=== PATIENT | female | born 1985 | race Caucasian/White ===

== ENCOUNTER 2019-03-11 10:47 | Outpatient (REF) | payer MEDICAID, SELFPAY ==
[2019-03-11 13:42] LABS: HCT 41.4 % (36.0-46.0); HGB 14.4 g/dL (12.0-15.5); Mean Corp. HGB Concentration 34.8 g/dL (32.0-36.0); Mean Corpuscular Hemoglobin 29.9 pg (27.0-33.0); Mean Corpuscular Volume 86.1 fL (80-95); Mean Platelet Volume 11.7 fL (8.0-11.0); Platelet Count 227 x1000/uL (130-400); RBC 4.81 m/cumm (4.00-5.20); RBC Distribution Width 12.1 % (11.7-14.6); White Blood Cell Count 4.14 k/cumm (4.4-10.8)
[2019-03-11 14:44] LABS: Ferritin 40 ng/mL (8-252)
== END 2019-03-11 11:07 ==
LOC: NCHCN 10:47
PROVIDERS: PCP Family Medicine; Visit Provider Family Medicine
DX: R53.83 Other fatigue (principal); G25.81 Restless legs syndrome
CPT/HCPCS: 85027; 82728

== ENCOUNTER 2019-07-16 09:12 | Outpatient (CLI) | payer MEDICAID, SELFPAY ==
[2019-07-19 03:36] LABS: SARS-CoV-2 RNA Undetected (Undetected); SARS-CoV-2 Specimen Source Nasopharynx
== END 2019-07-16 09:32 ==
PROVIDERS: PCP Family Medicine; Visit Provider Family Medicine
DX: Z20.828 Contact with and (suspected) exposure to other viral communicable diseases (principal); R06.02 Shortness of breath; R05 Cough
CPT/HCPCS: U0003

== ENCOUNTER 2019-10-07 18:10 | Outpatient (REF) | payer MEDICAID, SELFPAY ==
[2019-10-07 20:17] LABS: Mono Screening Negative (Negative)
[2019-10-11 04:54] LABS: SARS-CoV-2 RNA Undetected (Undetected); SARS-CoV-2 Specimen Source Nasopharynx
== END 2019-10-07 18:30 ==
LOC: NCHCN 18:10
PROVIDERS: PCP Nurse Practitioner Family; Visit Provider Nurse Practitioner Family
DX: J02.9 Acute pharyngitis, unspecified (principal); Z20.828 Contact with and (suspected) exposure to other viral communicable diseases
CPT/HCPCS: U0003; 86308

== ENCOUNTER 2019-11-16 07:37 | Outpatient (CLI) | payer MEDICAID, SELFPAY ==
[2019-11-17 17:26] LABS: COVID-19 RT-PCR Result NEGATIVE (Negative)
== END 2019-11-16 07:57 ==
PROVIDERS: PCP Nurse Practitioner Family; Visit Provider Family Medicine
DX: R06.02 Shortness of breath (principal)
CPT/HCPCS: U0003

== ENCOUNTER 2019-11-20 04:47 | Outpatient (CLI) | payer MEDICAID, SELFPAY ==
[2019-11-20] MEDS: Albuterol HFA 18 GM 200 PUFF INH IH (09:00)
[2019-11-20] MEDS: Inhaler, Assist Device 1 EACH MC (09:01)
--- NOTE | 2019-11-29 10:56 | W.PFT ---
Date of service: 11/20/19 Time of Service: 08:04 Pulmonary Function Test Result Interpretation Spirometry: Shows no evidence of obstructive airways disease, no bronchodilator response Lung Volumes: No evidence of restriction Diffusion Capacity: Normal Airway Pressure: Normal Impression Normal pulmonary function study Clinical Correlation therefore is recommended.
== END 2019-11-20 05:07 ==
PROVIDERS: PCP Nurse Practitioner Family; Visit Provider Family Medicine
DX: R06.02 Shortness of breath (principal)
CPT/HCPCS: 94060; 94726; 94729

== ENCOUNTER 2019-11-22 02:05 | Outpatient (CLI) | payer MEDICAID, SELFPAY ==
[2019-11-25 18:26] LABS: SARS-CoV-2 IgG Ab Negative (Negative)
== END 2019-11-22 02:25 ==
PROVIDERS: PCP Nurse Practitioner Family; Visit Provider Nurse Practitioner Family
DX: Z20.828 Contact with and (suspected) exposure to other viral communicable diseases (principal)
CPT/HCPCS: 36415; 86769

== ENCOUNTER 2019-12-02 10:29 | Outpatient (REF) | payer MEDICAID, SELFPAY ==
[2019-12-02 19:23] LABS: HCT 42.1 % (36.0-46.0); HGB 14.1 g/dL (11.2-15.7); MCH 29.7 pg (27.0-33.0); MCHC 33.5 % (32.0-36.0); MCV 88.6 fL (80-95); MPV 11.9 fL (8.0-11.0); Platelet Count 251 10^3/uL (130-400); RBC 4.75 10^6/uL (3.93-5.22); RDW 11.5 % (11.7-14.6); RDW-SD 37.1 fL; WBC 6.01 10^3/uL (4.4-10.8)
[2019-12-02 20:16] LABS: ALT 33 U/L (14-59); AST 21 U/L (15-37); Albumin 3.8 g/dL (3.4-5.0); Alkaline Phosphatase 54 U/L (46-116); Anion Gap 7.9 mmol/L (3-11); BUN 13 mg/dL (7-18); Bilirubin, Total 0.6 mg/dL (0.2-1.0); CO2 28.1 mmol/L (21.0-32.0); Calcium 9.1 mg/dL (8.5-10.1); Chloride 105 mmol/L (98-107); Ferritin 51 ng/mL (8-252); Glucose 76 mg/dL (74-106); Potassium 4.4 mmol/L (3.5-5.1); Sodium 141 mmol/L (136-145); TSH (W/Ref FT4) 2.15 uIU/mL (0.36-3.74); Total Protein 6.3 g/dL (6.4-8.2)
== END 2019-12-02 10:49 ==
LOC: NCHCN 10:29
PROVIDERS: Family Medicine; PCP Nurse Practitioner Family; Visit Provider Nurse Practitioner Family
DX: R06.02 Shortness of breath (principal); R53.83 Other fatigue; J02.9 Acute pharyngitis, unspecified
CPT/HCPCS: 80053; 85027; 82728; 84443

== ENCOUNTER 2019-12-25 01:01 | Outpatient (CLI) | payer MEDICAID, SELFPAY ==
--- NOTE | 2019-12-25 10:21 | DI.US_ITS ---
APPROVED REPORT EXAM: Comprehensive 2D, Doppler, and color-flow Echocardiogram Patient Location: Out-Patient Registered Nurse First Assistant: Giovana Reddy RDCS (AE) Indications: Shortness of Breath Other Information Study Quality: Good Conclusion Left Ventricle : The left ventricle is normal size. The left ventricular systolic function is normal. The left ventricular ejection fraction is within the normal range. There is normal left ventricular wall thickness. The left ventricular diastolic function is normal. LVEF is 60%. Right Ventricle : The right ventricle is normal size. The right ventricular systolic function is norm al. The RVSP is 14.4 mmHg. Atria : The left atrium size is normal. The right atrium size is normal. Valves: There are no hemodynamically significant valvular lesions. Great Vessels : The aortic root is normal in size. The ascending aorta is normal in size. Aortic arch is normal in caliber. IVC is normal in size and collapses >50% with inspiration. Please see remainder of study for further details. There are no prior studies available for comparis on. Wall motion Left Ventricle The left ventricle is normal size. The left ventricular systolic function is normal. The left ventric ular ejection fraction is within the normal range. There is normal left ventricular wall thickness. T here is normal LV segmental wall motion. The left ventricular diastolic function is normal. There is no ventricular septal defect visualized. LVEF is 60%. Right Ventricle The right ventricle is normal size. The right ventricular systolic function is normal. The RVSP is 14 .4 mmHg. Atria The left atrium size is normal. The right atrium size is normal. The interatrial septum is intact wit h no evidence for an atrial septal defect. Aortic Valve The aortic valve is normal in structure. Aortic valve is trileaflet. There is no aortic valvular sten osis. No aortic regurgitation is present. Mitral Valve The mitral valve is normal in structure. No evidence of mitral valve stenosis. Trace mitral regurgita tion. Tricuspid Valve The tricuspid valve is normal in structure. There is no tricuspid valve stenosis. Trace to mild tricu spid regurgitation. Pulmonic Valve The pulmonary valve is normal in structure. There is no pulmonic valvular stenosis. Trace to mild pul sanam regurgitation. Great Vessels The aortic root is normal in size. The ascending aorta is normal in size. Aortic arch is normal in ca liber. IVC is normal in size and collapses >50% with inspiration. Pericardium There is no pericardial effusion. There is no pleural effusion. 2D Dimensions IVSD d PLAX 0.67 cm F: 0.6-1.0 LV Vol A2C d MOD 69.7 mL LVPW d PLAX 0.68 cm F: 0.6 - 1.0 LV Vol A4C d MOD 77.2 mL LVID d PLAX 4.28 cm F: 3.8 - 5.2 LA vol/ BSA A2C s A-L 24.8 mL/m2 LVDs 2.75 cm F: 2.2 - 3.5 LA vol/ BSA A4C s A-L 17.1 mL/m2 Ao Root d 2.83 cm F: 2.7 - 3.3 LA Vol/ BSA Biplane s A-L 21.6 mL/m2 RA Area A4C 10.89 cm2 LA Area A4C s MOD 13.26 cm2 RA Vol/ BSA A4C s A-L 13.3 mL/m2 LA Area A2C s MOD 15.25 cm2 Ao Asc Diam d 2.50 cm F: 2.3 - 3.1 LV EF A4C MOD 60.0 % LV EF Teichholz 64.9 % LV EF A2C MOD 61.6 % LVEF (Hammer's) 60.05 % F: 54 - 74 LV EF Biplane MOD 60.0 % LV Volume 57.19 mL F: 46 - 106 SV 43.75 mL LV Volume Index 32.68 mL/m2 F: 29 - 61 SV Index 24.93 mL/m2 LV Vol Biplane MOD 72.9 mL FS 35.25 % M-Mode TAPSE 1.81 cm (M/F) >1.7 LV Diastology MV E' medial 0.092 (>0.07 m/s) E/A Ratio 1.2 LV E/e MED 8.20 (<14) MV E Vmax 0.75 (0.4-1.3 m/s) MV E' lateral 0.176 (>0.1 m/s) MV A Vmax 0.65 (0.4-1.3 m/s) LV E/e LAT 4.25 (<14) MV E/A Ratio 1.09 MV E/E' medial 8.20 MV E/E' lateral 4.28 Aortic Valve LVOT Area 3.16 cm2 AoV Area Vmax 2.92 cm2 LVOT Vmax 1.08 m/s AoV Area/ BSA (Vmax) 1.66 cm2/m2 LVOT Mean Jose. 0.71 m/s CLARA Mean Jose. 2.87 cm2 LVOT Peak Grad 4.7 mmHg CLARA Mean Jose. Index 1.63 cm2/m2 LVOT Mean Grad 2.4 mmHg LVOT VTI 0.199 m LVOT Diam s 2.00 cm AoV Vmax 1.17 m/s Velocity Ratio 0.92 AoV Mean Jose. 0.78 m/s AoV Peak Grad 5.4 mmHg LVOT SV 62.83 mL AoV Mean Grad 2.8 mmHg AoV VTI 0.191 m AoV Area VTI 3.29 cm2 AoV Area/ BSA (VTI) 1.87 cm/m2 Mitral Valve MV DT 236 (160-240 msec) MV PHT 68 msec MV Area PHT 3.21 cm2 Pulmonary Valve PV Vmax 1.03 (0.5-1.5 m/s) RVOT Peak Gr. 2.78 mmHg PV Peak Grad 4.2 mmHg RVOT Mean Gr. 1.30 mmHg PV Mean Grad 2.2 mmHg RVOT VTI 0.174 m PV VTI 0.206 m RVOT Vmax 0.83 m/s Tricuspid Valve TR Peak Grad 11.3 mmHg TR Vmax 1.69 m/s RA Pressure 3.00 mmHg RVSP (TR) 14.4 mmHg
== END 2019-12-25 01:21 ==
PROVIDERS: PCP Nurse Practitioner Family; Visit Provider Family Medicine
DX: R06.02 Shortness of breath (principal)
CPT/HCPCS: 93306

== ENCOUNTER 2020-01-06 02:45 | Outpatient (CLI) | payer MEDICAID, SELFPAY ==
--- NOTE | 2020-01-09 09:11 | W.HOLTRPT ---
Date of service: 01/09/20 Time of Service: 09:11 Holter Monitor Report Referring Provider:: aniket Indications:: palps Holter Monitor Note: This is a 48-hour Holter monitor ordered for indication of palpitations. ?The patient was in normal sinus rhythm for the majority of the recording with an average heart rate of 74 bpm. ?There were 0 episodes of supraventricular tachycardia nor any episodes of ventricular tachycardia. There was one total PAC. ?There were no episodes of atrial fibrillation, no pauses grade 3 seconds no evidence of high degree heart block.
== END 2020-01-06 03:05 ==
PROVIDERS: PCP Nurse Practitioner Family; Visit Provider Family Medicine
DX: R00.2 Palpitations (principal); I49.1 Atrial premature depolarization; R06.02 Shortness of breath
CPT/HCPCS: 93225

== ENCOUNTER 2020-01-08 08:44 | Outpatient (CLI) | payer MEDICAID, SELFPAY | END 2020-01-08 09:04 | PROVIDERS: PCP Nurse Practitioner Family; Visit Provider Nurse Practitioner Family | DX: R00.2 Palpitations (principal); R06.02 Shortness of breath | CPT/HCPCS: 93226 ==

== ENCOUNTER 2020-02-19 20:06 | Outpatient (REF) | payer MEDICAID, SELFPAY ==
[2020-02-24 11:30] LABS: Patient Race White; SARS-CoV-2 RNA Undetected (Undetected); SARS-CoV-2 Specimen Source Nasal
== END 2020-02-19 20:26 ==
LOC: NCHCN 20:06
PROVIDERS: PCP Nurse Practitioner Family; Visit Provider Nurse Practitioner Family
DX: J02.9 Acute pharyngitis, unspecified (principal)
CPT/HCPCS: U0003

== ENCOUNTER 2020-02-26 17:13 | Outpatient (CLI) | payer MEDICAID, SELFPAY ==
--- NOTE | 2020-02-26 13:22 | DI.RAD_ITS ---
EXAM: XR CHEST 2V PA LATERAL CLINICAL HISTORY: DYSPNEA, R06.00 TECHNIQUE: 2D digital imaging was performed. COMPARISON: No exams were available for comparison FINDINGS: MEDIASTINUM: Normal. HEART: Normal. PULMONARY VASCULATURE: Normal. LUNGS: Clear. PLEURAL SPACE: No pleural effusion or pneumothorax. BONE:Within normal limits for the patient's age. OTHER FINDINGS:Normal. IMPRESSION: No acute pulmonary findings. DATA REPOSITORY: RADIATION DOSE DELIVERED:
== END 2020-02-26 17:33 ==
PROVIDERS: PCP Nurse Practitioner Family; Visit Provider Internal Medicine Critical Care Medicine
DX: R06.00 Dyspnea, unspecified (principal)
CPT/HCPCS: 71046

== ENCOUNTER 2020-03-16 09:39 | Outpatient (CLI) | payer MEDICAID, SELFPAY ==
--- NOTE | 2020-03-30 08:41 | W.ZIOMONITOR ---
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 ?Patient was in normal sinus rhythm for the majority of the recording with an average heart rate of 72 bpm (43?187) ?The patient had 2 total PVCs and 1 PAC over the 14-day period. ?There were no episodes of ventricular tachycardia nor supraventricular tachycardia. ?There are no pauses greater than 3 seconds no evidence of atrial fibrillation and no evidence of high degree heart block. ?There were several episodes of sinus tachycardia with the longest lasting 20 minutes. ?There were no patient triggered events.
== END 2020-03-16 09:59 ==
PROVIDERS: PCP Nurse Practitioner Family; Visit Provider Family Medicine
DX: R00.2 Palpitations (principal); I49.3 Ventricular premature depolarization; I49.1 Atrial premature depolarization
CPT/HCPCS: 0296T

== ENCOUNTER 2020-10-14 11:29 | Outpatient (CLI) | payer MEDICAID, SELFPAY ==
--- NOTE | 2020-10-14 | DI.US_ITS ---
Exam(s) US LOWER EXTREMITY VENOUS RT EXAM: US LOWER EXTREMITY VENOUS RT CLINICAL HISTORY: PAIN IN RT LOWER LEG, M79.661, PAIN X FEW WEEKS, TRAUMA TO CALF TECHNIQUE: Grayscale, color, and doppler imaging of the deep venous system of the right lower extrem ity was performed. COMPARISON: US US ECHOCARDIOGRAM from 12/25/2019 FINDINGS: There is no evidence of intraluminal thrombus and there is normal compression and augmentation demons trated within the common femoral vein, femoral vein, and popliteal vein. In the ipsilateral calf the interrogated veins also exhibit normal compression/ augmentation properti es. The ipsilateral saphenofemoral junction is patent. IMPRESSION: 1. No evidence of DVT in the right lower extremity. 2. No abnormal fluid collections seen. DATA REPOSITORY:
== END 2020-10-14 11:49 ==
PROVIDERS: PCP Nurse Practitioner Family; Visit Provider Family Medicine
DX: M79.661 Pain in right lower leg (principal)
CPT/HCPCS: 93971

== ENCOUNTER 2020-10-26 21:51 | Outpatient (REF) | payer MEDICAID, SELFPAY ==
[2020-10-26 21:46] LABS: Abs Immature Grans 0.02 10^3/uL (0.0-0.06); Absolute Basophil Count 0.04 10^3/uL (0.0-0.2); Absolute Eosinophil Count 0.11 10^3/uL (0.0-0.7); Absolute Lymphocyte Count 2.25 10^3/uL (1.2-3.4); Absolute Monocyte Count 0.63 10^3/uL (0.1-0.8); Absolute Neutrophil Count 5.42 10^3/uL (1.2-6.7); Basophils % 0.5; Eosinophils % 1.3; HCT 44.1 % (36.0-46.0); HGB 14.6 g/dL (11.2-15.7); Immature Grans % 0.2; Lymphocytes % 26.6; MCH 29.6 pg (27.0-33.0); MCHC 33.1 % (32.0-36.0); MCV 89.3 fL (80-95); MPV 11.7 fL (8.0-11.0); Monocytes % 7.4; Nucleated RBC 0 %; Platelet Count 245 10^3/uL (130-400); RBC 4.94 10^6/uL (3.93-5.22); RDW 11.5 % (11.7-14.6); RDW-SD 37.2 fL; WBC 8.47 10^3/uL (4.4-10.8)
== END 2020-10-26 21:52 | disposition home or self-care (01) ==
LOC: NCHCN 21:51
PROVIDERS: PCP Nurse Practitioner Family; Visit Provider Family Medicine
DX: R13.10 Dysphagia, unspecified (principal); R68.84 Jaw pain
CPT/HCPCS: 85025

== ENCOUNTER 2020-10-30 03:02 | Outpatient (CLI) | payer MEDICAID, SELFPAY ==
--- NOTE | 2020-10-30 | DI.RAD_ITS ---
Exam(s) XR TMJ BL EXAM: XR TMJ BL INDICATION: JAW AND TMJ PAIN,R66.84. COMPARISON: No exams were available for comparison TECHNIQUE: 2D digital imaging was performed. FINDINGS: There are no visible degenerative changes involving the mandibular condyles. There is normal motion mouth opening of both temporomandibular joints. The sinuses are grossly clear. IMPRESSION: Unremarkable temporomandibular joints. DATA REPOSITORY: RADIATION DOSE DELIVERED:
--- NOTE | 2020-10-30 09:40 | DI.MRI_ITS ---
Exam(s) MR LUMBAR SPINE WO EXAM: MR LUMBAR SPINE WO CLINICAL HISTORY: RT SIDED LEG AND LOW BACK PAIN,M54.31. TECHNIQUE: Multiplanar multisequence MRI of the Lumbar spine was performed. COMPARISON: CR XR CHEST 2V PA LATERAL from 02/26/2020 FINDINGS: Bones: The last intervertebral disc space is designated the L5/S1 level for the numbering purpose of this examination. The vertebral body heights are well maintained. Alignment is satisfactory. The si gnal characteristics are unremarkable. Cord: The conus tip ends at the T12 level. It is of normal size and signal intensity. T12-L1: No disc herniations or bulges are present. L1-2: No disc herniations or bulges are present. L2-3: No disc herniations or bulges are present. L3-4: No disc herniations or bulges are present. L4-5: No disc herniations or bulges are present. L5-S1: No disc herniations or bulges are present. Soft tissues: The visualized SI joints and sacrum are well maintained. The paraspinal soft tissues ar e unremarkable. IMPRESSION: Negative MRI of the lumbar spine. No evidence of disc herniation, neural foraminal narrowing or cent ral canal stenosis.. DATA REPOSITORY:
== END 2020-10-30 03:22 ==
PROVIDERS: PCP Nurse Practitioner Family; Visit Provider Family Medicine
DX: M54.41 Lumbago with sciatica, right side (principal); M79.604 Pain in right leg; M26.623 Arthralgia of bilateral temporomandibular joint; R68.84 Jaw pain
CPT/HCPCS: 70330; 72148

== ENCOUNTER 2021-07-07 17:32 | Outpatient (REF) | payer MEDICAID, SELFPAY ==
[2021-07-07 19:51] LABS: ESR < 1 mm/hr (0-20)
== END 2021-07-07 17:33 | disposition home or self-care (01) ==
LOC: NCHCN 17:32
PROVIDERS: PCP Nurse Practitioner Family; Visit Provider Family Medicine
DX: R68.84 Jaw pain (principal)
CPT/HCPCS: 85652

== ENCOUNTER 2021-07-09 18:02 | Outpatient (CLI) | payer MEDICAID, SELFPAY ==
--- NOTE | 2021-07-09 | DI.RAD_ITS ---
Exam(s) XR SOFT TISSUE NECK EXAM: XR SOFT TISSUE NECK CLINICAL HISTORY: throat swelling. TECHNIQUE: 2D digital imaging was performed. COMPARISON: CR CERVICAL SP. LIMITED (TRAUMA) from 03/26/2008 FINDINGS: BONES: No acute fracture is present. Degenerative changes at C5-6. Facet degenerative changes. SOFT TISSUE:Airway is patent without radiopaque foreign body. Epiglottis is not enlarged. Prevertebra l soft tissues appear unremarkable. IMPRESSION: Unremarkable radiographs of soft tissue neck. DATA REPOSITORY: RADIATION DOSE DELIVERED:
--- NOTE | 2021-07-09 | DI.RAD_ITS ---
Exam(s) XR CHEST 2V PA LATERAL EXAM: XR CHEST 2V PA LATERAL CLINICAL HISTORY: throat swelling TECHNIQUE: 2D digital imaging was performed. COMPARISON: CR XR CHEST 2V PA LATERAL from 02/26/2020 FINDINGS: MEDIASTINUM: Normal. HEART: Normal. PULMONARY VASCULATURE: Normal. LUNGS: Clear. PLEURAL SPACE: No pleural effusion or pneumothorax. BONE:Unremarkable for age. IMPRESSION: No acute abnormality. DATA REPOSITORY: RADIATION DOSE DELIVERED:
--- NOTE | 2021-07-09 19:15 | DI.VRAD_ITS ---
PROCEDURE INFORMATION: Exam: XR Chest Exam date and time: 07/09/2021 6:21 PM Age: 36 years old Clinical indication: Other: Throat swelling TECHNIQUE: Imaging protocol: XR of the chest. Views: 2 views. COMPARISON: CR XR CHEST 2V PA LATERAL 02/26/2020 1:12 PM FINDINGS: Lungs: Unremarkable. No consolidation. Pleural spaces: Unremarkable. No pleural effusion. No pneumothorax. Heart/Mediastinum: Unremarkable. No cardiomegaly. Bones/joints: Unremarkable. IMPRESSION: No acute findings. Dictated and Authenticated by: Quin Ervin MD. Ordering:KAMERON Oswald MD
--- NOTE | 2021-07-09 19:27 | DI.VRAD_ITS ---
PROCEDURE INFORMATION: Exam: XR Soft Tissue Neck Exam date and time: 07/09/2021 6:23 PM Age: 36 years old Clinical indication: Other: Throat swelling; Additional info: Per provider: Chest tightness, post-nasal drip, anterior cervical lymphadenopathy TECHNIQUE: Imaging protocol: XR of the soft tissues of the neck. COMPARISON: CR XR CHEST 2V PA LATERAL 07/09/2021 6:21 PM FINDINGS: Airway: Normal. No abnormal narrowing. Soft tissues: Normal. Normal epiglottis. Bones/joints: Unremarkable. IMPRESSION: No acute findings. Dictated and Authenticated by: Quin Ervin MD. Ordering:KAMERON Oswald MD
== END 2021-07-09 18:22 ==
PROVIDERS: PCP Nurse Practitioner Family; Visit Provider Physician Assistant Medical
DX: R22.1 Localized swelling, mass and lump, neck (principal)
CPT/HCPCS: 70360; 71046

== ENCOUNTER 2021-07-09 20:50 | Outpatient (REF) | payer MEDICAID, SELFPAY ==
[2021-07-11 15:22] LABS: COVID-19 RT-PCR UVMMC Result Negative (Negative)
== END 2021-07-09 20:51 | disposition home or self-care (01) ==
LOC: LBN 20:50
PROVIDERS: PCP Nurse Practitioner Family; Visit Provider Physician Assistant Medical
DX: Z20.822 Contact with and (suspected) exposure to COVID-19 (principal); J02.9 Acute pharyngitis, unspecified; R22.1 Localized swelling, mass and lump, neck; R68.84 Jaw pain
CPT/HCPCS: U0003; 87070

== ENCOUNTER 2021-07-13 18:58 | Outpatient (REF) | payer MEDICAID, SELFPAY ==
[2021-07-13 20:39] LABS: Abs Immature Grans 0.02 10^3/uL (0.0-0.06); Absolute Basophil Count 0.06 10^3/uL (0.0-0.2); Absolute Eosinophil Count 0.12 10^3/uL (0.0-0.7); Absolute Lymphocyte Count 2.96 10^3/uL (1.2-3.4); Absolute Monocyte Count 0.47 10^3/uL (0.1-0.8); Absolute Neutrophil Count 4.14 10^3/uL (1.2-6.7); Basophils % 0.8; Eosinophils % 1.5; HCT 46.7 % (36.0-46.0); HGB 15.4 g/dL (11.2-15.7); Immature Grans % 0.3; Lymphocytes % 38.1; MCH 29.3 pg (27.0-33.0); MCV 88.8 fL (80-95); MPV 11.3 fL (8.0-11.0); Neutrophils % 53.3; Nucleated RBC 0 %; Platelet Count 275 10^3/uL (130-400); RBC 5.26 10^6/uL (3.93-5.22); RDW 11.2 % (11.7-14.6); RDW-SD 36.3 fL; WBC 7.77 10^3/uL (4.4-10.8)
[2021-07-13 20:48] LABS: TSH (W/Ref FT4) 2.43 uIU/mL (0.36-3.74)
== END 2021-07-13 18:59 | disposition home or self-care (01) ==
LOC: NCHCN 18:58
PROVIDERS: PCP Nurse Practitioner Family; Visit Provider Family Medicine
DX: R53.83 Other fatigue (principal); J02.9 Acute pharyngitis, unspecified
CPT/HCPCS: 86308; 84443; 85025

== ENCOUNTER 2021-07-13 20:40 | Outpatient (REF) | payer MEDICAID, SELFPAY | END 2021-07-13 20:41 | disposition home or self-care (01) | LOC: NCHCN 20:40 | PROVIDERS: PCP Nurse Practitioner Family; Visit Provider Family Medicine ==

== ENCOUNTER 2021-07-16 18:06 | Outpatient (REF) | payer MEDICAID, SELFPAY ==
[2021-07-16 19:55] LABS: Abs Immature Grans 0.04 10^3/uL (0.0-0.06); Absolute Basophil Count 0.01 10^3/uL (0.0-0.2); Absolute Lymphocyte Count 1.22 10^3/uL (1.2-3.4); Absolute Monocyte Count 0.27 10^3/uL (0.1-0.8); Absolute Neutrophil Count 6.37 10^3/uL (1.2-6.7); Basophils % 0.1; HCT 44.3 % (36.0-46.0); HGB 15.2 g/dL (11.2-15.7); Immature Grans % 0.5; Lymphocytes % 15.4; MCH 29.5 pg (27.0-33.0); MCHC 34.3 % (32.0-36.0); MCV 85.9 fL (80-95); MPV 11.7 fL (8.0-11.0); Monocytes % 3.4; Neutrophils % 80.6; Nucleated RBC 0 %; Platelet Count 291 10^3/uL (130-400); RBC 5.16 10^6/uL (3.93-5.22); RDW 11.2 % (11.7-14.6); RDW-SD 35.5 fL; WBC 7.91 10^3/uL (4.4-10.8)
[2021-07-16 20:13] LABS: ALT 29 U/L (14-59); AST 16 U/L (15-37); Albumin 4.6 g/dL (3.4-5.0); Alkaline Phosphatase 58 U/L (46-116); Anion Gap 11.5 mmol/L (3-11); BUN 13 mg/dL (7-18); Bilirubin, Total 0.6 mg/dL (0.2-1.0); C-Reactive Protein 0.11 mg/dL (0.0-0.3); CO2 23.5 mmol/L (21.0-32.0); CREATININE 0.7 mg/dL (0.55-1.02); Calcium 9.9 mg/dL (8.5-10.1); Chloride 105 mmol/L (98-107); Glucose 117 mg/dL (74-106); Potassium 4.3 mmol/L (3.5-5.1); Sodium 140 mmol/L (136-145); Total Protein 7.4 g/dL (6.4-8.2)
[2021-07-19 10:51] LABS: Hepatitis C Ab w Rflx HCV PCR Negative (Negative)
[2021-07-19 11:00] LABS: Hepatitis B Surface Ag Negative (Negative)
[2021-07-19 11:13] LABS: Lyme Ab w Rflx to Lyme Confirm Negative (Negative)
[2021-07-19 11:31] LABS: HIV-1/2 Ag & Ab Screen Negative (Negative)
== END 2021-07-16 18:07 | disposition home or self-care (01) ==
LOC: NCHCN 18:06
PROVIDERS: PCP Nurse Practitioner Family; Visit Provider Family Medicine
DX: R53.83 Other fatigue (principal); R52 Pain, unspecified; D75.1 Secondary polycythemia; Z83.3 Family history of diabetes mellitus; Z11.4 Encounter for screening for human immunodeficiency virus [HIV]; Z11.59 Encounter for screening for other viral diseases
CPT/HCPCS: 80053; 86803; 87340; 87389; 83036; 85025; 86140; 86618

== ENCOUNTER → 2021-09-07 02:00 | Outpatient (CLI) | payer MEDICAID, SELFPAY | PROVIDERS: PCP Nurse Practitioner Family; Visit Provider Family Medicine ==

== ENCOUNTER → 2021-10-28 01:43 | Outpatient (CLI) | payer MEDICAID, SELFPAY ==
--- NOTE | 2021-10-28 07:45 | DI.US_ITS ---
Exam(s) US THYROID EXAM: US THYROID CLINICAL HISTORY: NECK PAIN, M54.2, DYSPHAGIA, R13.10, ? SWOLLEN NODES/NODULES/ENLARGEMENT. TECHNIQUE: Ultrasound thyroid performed using standard protocol. COMPARISON: No exams were available for comparison FINDINGS: ISTHMUS: 1.2 mm RIGHT LOBE: Size: 4.3 x 1.4 x 1.5 cm cm Echogenicity: Normal. Vascularity: Normal. Nodules: There is a 3 cm simple cyst in the right lobe. No follow-up is recommended. LEFT LOBE: Size: 3.9 x 1.2 x 1.5 cm Echogenicity: Normal. Vascularity: Normal. Nodules: 2 simple cysts are seen in the left lobe. The largest measures 4 mm. No follow-up is recom mended. OTHER FINDINGS: None. IMPRESSION: 1. No suspicious thyroid nodules. 2. Subcentimeter simple cysts in the thyroid gland. These are TI-RADS level 1. No follow-up is rec ommended. DATA REPOSITORY:
--- NOTE | 2021-10-28 07:45 | DI.US_ITS ---
Exam(s) US SOFT TISSUE HEAD OR NECK EXAM: US SOFT TISSUE HEAD OR NECK CLINICAL HISTORY: NECK PAIN, DYSPHAGIA, M54.2, R13.10; NECK TIGHTNESS, FEELS SWELLING. TECHNIQUE: Ultrasound was performed using standard protocol. COMPARISON: No exams were available for comparison FINDINGS: Sonographic assessment utilizing grayscale and color Doppler imaging was performed and targeted to th e area of clinical concern. Benign-appearing lymph nodes are seen in the neck bilaterally. The largest on the right measures 2.4 x 0.6 x 1.7 cm. The largest on the left measures 1.2 x 0.6 x 1.2 cm. No suspicious cystic or solid masses are seen in the soft tissues. IMPRESSION: No suspicious cystic or solid masses. DATA REPOSITORY:
== END ==
PROVIDERS: PCP Nurse Practitioner Family; Visit Provider Family Medicine
DX: E04.1 Nontoxic single thyroid nodule (principal)
CPT/HCPCS: 76536

== ENCOUNTER 2022-02-08 08:17 | Emergency (ER) | payer MEDICAID, SELFPAY ==
[2022-02-08 08:21] VITALS: BP 126/66; PULSE 70; RESP 20; TEMP 37; O2SAT 100
--- NOTE | 2022-02-08 08:30 | DI.RAD_ITS ---
Exam(s) XR HAND RT COMPLETE EXAM: XR HAND RT COMPLETE CLINICAL HISTORY: hit R hand on wood, lacs 3rd/4th fingers. TECHNIQUE: 2D digital imaging was performed. COMPARISON: No exams were available for comparison FINDINGS: 3 views No evidence of fracture or dislocation. No osseous lesions nor erosions. No radiopaque foreign body . IMPRESSION: No significant osseous findings in the hand. DATA REPOSITORY: RADIATION DOSE DELIVERED:
--- NOTE | 2022-02-08 08:44 | ED.GENADUL_ITS ---
Discharge Plan Disposition Patient Disposition: HOME Condition: Stable Discharge Details Clinical Impression: Contusion, fingers, Laceration of finger Primary Care Provider: Idalmis Farfan ED Provider: Subha Bonner Home Meds and New Rx's Prescriptions: New cephalexin 500 mg capsule 500 mg PO BID 3 Days Qty: 6 0RF Continued ascorbate calcium (vitamin C) 500 mg tablet 500 mg PO DAILY triamcinolone acetonide 0.1 % cream 1 applic topical BID bsnnbal-rtli-owxkp-oreg-capryl 100 mg-150 mg- 50 mg-150 mg capsule 1 cap PO DAILY famotidine [Acid [employer] (famotidine)] 20 mg tablet 20 - 40 mg PO DAILY multivitamin 1 EACH tablet 1 tab PO DAILY Discharge Instructions Instructions: Contusion in Adults (ED), Finger Laceration (ED) Additional Instructions: Your x-ray today showed no evidence of fracture or dislocation. Your symptoms are likely secondary to a contusion or bruise. Keep wound clean and dry. Cover wound with bandage if risk of contamination. Otherwise you can keep the wound open to air if resting at home to allow edges to dry and heal. You can keep the splint in place to help with pain and healing. Alternate tylenol and motrin as needed and directed for pain. Follow up with your primary care doctor in 1 week as needed. Return to the emergency department with any worsening or new concerning symptoms. Discharge Data Discharge Date/Time-TO BE ENTERED AT DEPARTURE: 02/08/22 09:51 Discharge Physician: Subha Bonner Medical Decision Making 36-year-old female presents with injury to her right third and fourth fingers after slammed on a piece of wood while building a bed yesterday at 4 PM. Unsure of her tetanus status. She has a 2 mm x 1 cm linear laceration with dried crusted center on dorsal surface of proximal phalange of right third finger with surrounding mild edema and ecchymosis with tenderness to palpation and limited range of motion. She has a 1 mm x 1 cm superficial laceration on dorsal surface of proximal denies any of right fourth finger with tenderness to palpation and limited range of motion. There is no deformity to her fingers or hand. No pain with range of motion or tenderness to palpation of right wrist. Normal capillary refill. Tetanus up-to-date 2017. Will refer for x-rays. She declines medication for pain. X-rays negative for fracture. Patient requests finger splint. Band-Aid placed to finger laceration and aluminum splint placed to right third finger. Advised on importance of proper wound care. A prescription for antibiotics sent electronically to her pharmacy as prophylaxis is needed. Advised to follow up with the primary care doctor for re-evaluation. Usual and customary return precautions given prior to discharge. Medical Records Medical records reviewed: Yes I reviewed the patient's medical records. Imaging Data Radiologic Study: Radiologist's impression: XR HAND RT COMPLETE CLINICAL HISTORY: ? hit R hand on wood, lacs 3rd/4th fingers. ? TECHNIQUE:? 2D digital imaging was performed. COMPARISON:? No exams were available for comparison FINDINGS: 3 views No evidence of fracture or dislocation.? No osseous lesions nor erosions.? No radiopaque foreign body. IMPRESSION: No significant osseous findings in the hand. HPI General Mode of arrival: ambulatory . Date/Time Provider Initiated Documentation: 02/08/22 08:24 . Limitations to Documentation: no limitations . Information obtained by: patient . HPI Narrative: Patient is a 36-year-old left hand dominant female presents with injury to her right third and fourth fingers after she slammed her hand on a piece of wood while building bed last night. Pt states she was using a hammer with her left hand and reached her right hand up and then slammed it against a piece of wood causing lacerations to her Right 3rd and 4th fingers. She has been taking over the counter pain medicine. She is unsure of her tetanus status but states it is probably within the last 10 years. Related Data Home Medications Medication Instructions Recorded Confirmed multivitamin 1 tab PO DAILY 08/12/16 02/08/22 ascorbate calcium (vitamin C) 500 500 mg PO DAILY 12/10/20 02/08/22 mg tablet famotidine 20 mg tablet (Acid 20 - 40 mg PO DAILY 12/10/20 02/08/22 [employer] (famotidine)) triamcinolone acetonide 0.1 % 1 applic topical BID 12/10/20 02/08/22 topical cream tumeric 100 mg-jatin 150 mg-olive 1 cap PO DAILY 12/10/20 02/08/22 50 mg-oreg 150 mg-caprylate capsule cephalexin 500 mg capsule 500 mg PO BID 3 days #6 caps 02/08/22 Previous Rx's Medication Instructions Recorded cephalexin 500 mg capsule 500 mg PO BID 3 days #6 caps 02/08/22 Allergies Allergy/AdvReac Type Severity Reaction Status Date / Time omeprazole Allergy Verified 07/19/21 11:16 sodium lauryl sulfate Allergy Verified 07/19/21 11:16 General Stated Complaint: Orthopedic CHRISTINA: 4 Review of Systems All systems reviewed & are unremarkable except as noted in HPI and below Constitutional Constitutional: Reports as per HPI, Denies chills and Denies fever(s) Eyes Eyes: Denies blurry vision ENT Ears, Nose, Mouth, and Throat: Denies dizziness, Denies sore throat and Denies throat swelling Cardiovascular Cardiovascular: Denies chest pain and Denies dyspnea Respiratory Respiratory: Denies cough and Denies dyspnea Gastrointestinal Gastrointestinal: Denies abdominal pain, Denies diarrhea and Denies vomiting Genitourinary Genitourinary: Denies hematuria and Denies dysuria Musculoskeletal Musculoskeletal: Denies back pain and Denies numbness Comments: Right 3rd and 4th finger pain/lacerations Integumentary/Breasts Skin/Breast: Denies lesions and Denies rash Neurologic Neurologic: Denies dizziness, Denies localized weakness and Denies numbness Allergic/Immunologic Allergic/Immunologic: Denies throat swelling PFSH All Active Problems (Updated 02/08/22 @ 09:43 by Subha Bonner DO) Contusion, fingers (Acute) Laceration of finger (Acute) Throat pain (Acute) Stomatitis (Acute) GERD (gastroesophageal reflux disease) (Chronic) Depression (Chronic) Excessive sweating (Acute) Comedonal acne (Acute) Allergic asthma (Acute) 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) Restless legs (Acute) Right wrist pain (Acute) Sciatica (Acute) Pain in right lower leg (Acute) Dysphagia (Acute) Fatigue (Acute) Jaw pain (Acute) Shortness of breath (Acute) Medical History (Updated 02/08/22 @ 09:43 by Subha Bonner DO) SOB (shortness of breath) Surgical History (Updated 07/19/21 @ 11:17 by Traci MCKEON) H/O tubal ligation History of dilation and curettage [place] teeth extracted Family History Father Asthma COPD (chronic obstructive pulmonary disease) Paternal Grandmother Cancer breast, bone Diabetes Social History (Updated 07/19/21 @ 11:18 by Traci MCKEON) Smoking/Tobacco Use Status: Former Tobacco Use Smoking risk assessment performed?: Yes Alcohol Intake: current Alcohol Intake frequency: 0-2 drinks per day Drug use: Occasionally Substance use type: marijuana Do you feel safe at home: Yes Do you feel safe in your relationship?: Yes Exam Const General: cooperative, healthy appearing and no acute distress HENMT Head: normal to inspection Mouth: oral mucosae normal Eyes General: appearance normal, both eyes and all related structures Neck Neck: normal visual inspection Resp Effort & Inspection: normal respiratory effort and able to speak in complete sentences Cardio Rate: regular rate Skin General skin exam: no rashes or lesions noted Neuro General: patient alert, patient awake and patient oriented x3 Motor: muscle tone normal throughout Extrem Hand/finger images: 1. [id number] linear laceration with dried crust in center on dorsal surface of proximal phalange of Right 3rd finger. No active bleeding. No surrounding erythema. There is mild ecchymoses and edema of the proximal 3rd finger on dorsal aspect. No deformity. 2. [id number] superficial linear laceration noted on dorsal surface of proximal phalange of Right 4th finger. No bleeding. No significant edema, ecchymoses, erythema. No deformity. Psych Appearance: grossly normal Affect: normal affect Course Vital Signs Vital signs: Vital Signs Temperature 98.6 F 02/08/22 08:21 Pulse 70 02/08/22 08:21 Respiratory Rate 20 02/08/22 08:21 Blood Pressure 126/66 02/08/22 08:21 Pulse Oximetry 100 02/08/22 08:21 Temperature 98.6 F 02/08/22 08:21 Temperature Source Temporal Artery Scan 02/08/22 08:21 Pulse 70 02/08/22 08:21 Respiratory Rate 20 02/08/22 08:21 Respiratory Effort Non-Labored 02/08/22 08:24 Blood Pressure 126/66 02/08/22 08:21 Blood Pressure Position Sitting 02/08/22 08:21 Pulse Oximetry 100 02/08/22 08:21 Oxygen Delivery Method Room Air 02/08/22 08:21 Oxygen Flow Rate 0 02/08/22 08:21 Pain Level 6 02/08/22 08:21
== END 2022-02-08 09:51 | disposition home or self-care (01) ==
PROVIDERS: Emergency Provider Physician Assistant; PCP Family Medicine
DX: S61.212A Laceration without foreign body of right middle finger without damage to nail, initial encounter (principal); S61.214A Laceration without foreign body of right ring finger without damage to nail, initial encounter; Z87.891 Personal history of nicotine dependence; W23.0XXA Caught, crushed, jammed, or pinched between moving objects, initial encounter; Y93.89 Activity, other specified
CPT/HCPCS: 81025; 99283; 73130; 99284

== ENCOUNTER 2023-06-02 11:02 | Outpatient (REF) | payer MEDICAID, SELFPAY ==
--- OUTSIDE RECORDS SUMMARY | 2023-06-02 11:05 | XMS_ITS | Continuity of Care Document ---
Author Name Unknown Organization [facility] Ambulatory Clinics Address [address] [place] [address] Care Team Providers Care Irish Moss Operator Name Role Phone DARRIUSTERRANCE MAGDALENO Marisa Primary Care Physician [phone] Encounter [facility] NBR [id number] Date(s): 05/19/22 - 05/19/22 [facility] Ambulatory Clinics [address] [place], [place] [address] Encounter Diagnosis Gynecologic exam normal(Discharge Diagnosis) - 05/19/22 History of cervical dysplasia(Discharge Diagnosis) - 05/19/22 HSV (herpes simplex virus) infection(Discharge Diagnosis) - 05/19/22 Discharge Disposition: Home or Self Care Attending Physician: Matheus Allred MD Allergies, Adverse Reactions, Alerts Substance Reaction Severity Status omeprazole Moderate Active sodium sulfate Moderate Active Assessment and Plan Future Appointments Future Scheduled Tests Radiology* XR Barium Swallow 01/18/22 Functional Status 05/19/22 Living Environment Home Environment No qualifying data available Family Member Travel History No recent t ravel Recent Travel History No recent travel Other exposure to Infectious Disease Non e Immunizations Given and Recorded Vaccine Date Status Refusal Reason HPV, unspecified formulation 06/21/19 Recorded human papillomavirus vaccine 02/22/19 Recorded human papillomavirus vaccine 12/24/18 Recorded Medications famotidine 20 mg oral tablet 20 mg = 1 tab, Oral, BID, # 60 tab, 0 Refill(s) Start Date: 01/18/22 Status: Ordered multivitamin adult, oral tablet 1 tab, Oral, Daily, # 30 tab, 0 Refill(s) Start Date: 01/18/22 Status: Ordered NAC 600 mg oral capsule 600 mg = 1 cap, Oral, Daily, between meals, # 60 cap, 0 Refill(s) Start Date: 01/18/22 Status: Ordered valACYclovir 1 g oral tablet 1 g = 1 tab, Oral, Daily, # 30 tab, 12 Refill(s), Pharmacy: [facility] #[id number] Start Date: 02/04/22 Stop Date: 03/01/23 Status: Ordered Problem List Condition Confirmation Course Effective Dates Status Health St atus Informant Depression Confirmed Active Dysphagia Confirmed Active Fatigue Confirmed Active Gynecologic exam normal Confirmed Active Fibromyalgia Confirmed Active Esophageal reflux Confirmed Active HSV (herpes simplex virus) infection Confirmed Active History of cervical dysplasia Confirmed Active Arthralgia Confirmed Active Nausea Confirmed Active Procedures Procedure Date Related Diagnosis Body Site Status Esophagogastroduodenoscopy, flexible, transoral; with biopsy, single or multiple 01/05/22 Completed Salpingectomy 1 07/30/20 Completed Dilation and curettage 08/13/16 Co mpleted EGD (esophagogastroduodenosc opy) gastric outlet reduction 01/03/14 Complet ed Extraction of wisdom tooth 2 Completed 1laparoscopic bilateral salpingectomies 2x4 Vital Signs Most recent to oldest [Reference Range]: 1 Blood Pressure [90-140/60-90 mmHg] 124/6 8mmHg (05/19/22 9:37 AM) Weight 71.8 kg (05/19/22 9:37 AM) Weight Measured (lbs) 158.292 lb (05/19/22 9:37 AM) [employer] Body Weight Calculated 54.7 kg (05/19/22 9:37 AM) Height 162.56 cm (05/19/22 9:37 AM) Height/Length Measured (inches) 64 inch (05/19/22 9:37 AM) BSA Measured 1.8 m2 (05/19/22 9:37 AM) Body Mass Index 27.17 kg/m2 (05/19/22 9:37 AM) Social History Social History Type Response Tobacco Never tobacco user T obacco Use:. 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 She has struggled with positive findings for high risk HPV.?? Her last Pap in January 2021 was negative with negative high-risk HPV testing.?? She is status post bilateral tubal ligation for contraception.?? Things are going well at home overall.?? She has 1 still in preschool.?? 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 ?? In the patient had had steadily progressive discomfort in the breasts extending out into the axillas.?? Her right breast was bothering consistently.?? With her history of breast cancer in the family she was concerned.?? She was seen by Dr. Calloway.?? It was recommended the patient create a calendar to monitor the symptoms.?? She also was asked to avoid more than 2 drinks of alcoholper week and to also add in some soy to her diet.?? Since that visit??she states that the breast discomfort has generally improved. ??There is still an area of irregular??contours??on the inferior, medial??right breast. ??No changes??over the last few months. ??No nipple discharge. ??She has been be en having some upper abdominal pain and difficulty swallowing.?? She has been seen by GI for an in-depth work-up.?? She had an upper GI and was found to have no evidence of an ulcer.?The esophaguswas dilated. ??Since that time she has had no??further issues swallowing. ??The GERD is??similar but if she takes her??famotidine it seems??to??help significantly.?? At the time of her endoscopy she had some biopsies gathered. ??They were unremarkable. ?? Gynecologic History Menses?Her cycles are regular and not bothersome. Breast ? History of bilateral mastalgia- Consult 02/[address] Calloway. Neg eval- rec'd cutting back on EtOH and adding in soy Vulvovaginal Complaints ?Discharge - minimal Incontinence ?MIKAYLA - occasional ?OAB Sexually Active?? (Yes/No) Prolapse symptoms?? (None) STI History -?? Genital HSV Scalp Treatment Specialist Surgery?? Contraception? LS Bilat Salpingectomies 07/31/2020 ?? Obstetrical History ? , 3 NSVDs, largest 8# 5oz ?? Screening Cervical Cancer Screening ?Pap History?? 2018 - + non16/18 HR HPV. Completed Gardisil 06/21/2019. Followed with Paps.??01/2021- Neg/Neg, ?Colposcopies ?Cervical treatments?- None Breast Cancer Screening??- not yet ? Mammogram History ? Biopsies STI Screening Lipid screening?? Not yet ?Latest/plan for next study Colonoscopy ?Study history/plan for next study Calcium Intake ?Dairy/Dairylike -?? minimal ?Supplements Vit D ?Supplemented most days. ?? Exercise?- Occas walking, nothing regular Review of Systems Constitutional:?No??fevers,?No??chills,?No??sweats Eye:?No??recent visual problems ENT:?No??ear pain,?No??nasal congestion,?No??sore throat Respiratory:?No??shortness of breath,?No??cough Cardiovascular:?No??Chest pain,?No??palpitations,?No??syncope Gastrointestinal:?Nonausea,?No??vomiting,?No??diarrhea Genitourinary:?No??hematuria Nathan/Lymph:?No??bruising tendency,?No??swollen lymph glands Endocrine:?No??excessive thirst,??No??excessive hunger Musculoskeletal:??No??back pain,??No??neck pain,??No??joint pain,??No??muscle pain,??No??decreased range of motion Integumentary:?No??rash,?No??pruritus,?No??abrasions Neurologic: Alert & oriented X 4 Psychiatric:?No??anxiety,?No??depression Physical Exam Vitals & Measurements BP:??124/68?? HT:??162.56??cm?? WT:??71.8??kg?? BMI:??27.17?? BSA:??1.8?? General: Alert and oriented, well nourished,?No acute distress Eye: PERRL, EOMI,??Normal conjunctiva HENT: Normocephalic,??Normal hearing, moist oral mucosa,?No scleral icterus Neck: Supple, non-tender, no??thyroid irregularities or thyromegaly Lungs: Clear to auscultation and percussion,?Non-labored respiration Heart:?Normal rate,?Regular rhythm,?No murmur,?No gallop Abdomen: Soft, non-tender, non-distended,?Normal bowel sounds,?No??masses Musculoskeletal:?Normal range of motion and strength,?No tenderness,?No swelling Skin: Skin is warm, dry and pink,?No??rashes,?No lesions Neurologic: Awake, alert and oriented X4, CN II-XII intact Psychiatric: Cooperative, appropriate mood and affect ?? Breast: The bilateral breast exam??is unremarkable.?? The area she indicates??as being in the irregularity at 4:00 on the right breast??notes some fibroglandular tissues??that are lined up appropriately??for normal glands. ??No unusual??nipple features though the right is slightly inverted??inferiorly. ??No axillary lymphadenopathy. ??No areas of redness or skin dimpling. ?? Pelvic:??Some gape to the introitus at 2.5 cm. ??Slight rectocele.?? Nothing??significant for descent with cough or strain. ??The cervix??is multiparous in size but otherwise normal in appearance.??Pap smear obtained.?? Uterus is anteverted, small, no adnexal masses or tenderness. Assessment/Plan 1.??Gynecologic exam normal??Z01.419 Overall she is doing well. ??I gathered a Pap smear and I will reach out to her with the results.??My major concern comes around her??exercise??and diet.?? I encouraged more aerobic exercise.?? Onceher youngest??is off to school??I encouraged her to look??into her area and see??if there are exercise classes that may meet her needs.?? I also recommended she??continue her vitamin D??supplement. 2.??History of cervical dysplasia??Z87.410 3.??HSV (herpes simplex virus) infection??B00.9 Orders: Outside Lab Request, *Est. 05/19/22 +/- 2 days, [facility] pap and HPV screening, Future Order, Cervical high risk human papillomavirus (HPV) DNA test positive Problem List/Past Medical History Ongoing Arthralgia Depression Dysphagia Esophageal reflux Fatigue Fibromyalgia Gynecologic exam normal History of cervical dysplasia HSV (herpes simplex virus) infection Nausea Historical Procedure/Surgical History ???Esophagogastroduodenoscopy, flexible, transoral; with biopsy, single or multiple (01/06/2022)???Salpingectomy (07/31/2020)???Dilation and curettage (08/14/2016)???EGD (esophagogastroduodenoscopy) gastric outlet reduction (01/04/2014)???Extraction of wisdom tooth Medications famotidine 20 mg oral tablet, 20 mg= 1 tab, Oral, BID multivitamin adult, oral tablet, 1 tab, Oral, Daily NAC 600 mg oral capsule, 600 mg= 1 cap, Oral, Daily valACYclovir 1 g oral tablet, 1 g= 1 tab, Oral, Daily, 12 refills Allergies omeprazole sodium sulfate Social History Alcohol Current, Beer, Wine, Liquor, 3-5 times per week Electronic Cigarette/Vaping Electronic Cigarette Use: Never. Employment/School Work/School description: Farm. Highest education level: Some college. Home/Environment Lives with Children, Spouse. Living situation: Home/Independent. Sexual Sexually active: Yes. Substance Use Current, Marijuana Tobacco Never tobacco user Tobacco Use:. Family History Breast cancer: Grandfather (M). Diabetes mellitus: Grandfather (M) and Grandfather (P). Immunizations Vaccine Date Status HPV, unspecified formulation 06/21/2019 Recorded human papillomavirus vaccine 02/22/2019 Recorded human papillomavirus vaccine 12/24/2018 Recorded Health Maintenance ?Pending??(in the next year) ?Due?Adult Wellness Exam due?05/19/22?and every 1?years ?Alcohol Use Screening due?05/19/22?and every 1?years ?Cervical Cancer Screening due?05/19/22?Variable frequency ?Depression Screening due?05/19/22?and every 1?years ?HIV Screening due?05/19/22?and every 1?years ?Hepatitis C Screening due?05/19/22?One-time only ?Satisfied??(in the past 1 year) ?Satisfied?Body Mass Index on?05/19/22.?Satisfied by Ros Alcazar ?? Electronically Signed on 05/19/22 10:44 AM Matheus Allred MD Patient Care team information Personnel Name: TERRANCE RIZO Marisa Address: Address: [address] [place] [id number]
--- OUTSIDE RECORDS SUMMARY | 2023-06-02 11:05 | XMS_ITS | Continuity of Care Document ---
Author Name Unknown Organization [facility] Ambulatory Clinics Address [address] [place] [address] Care Team Providers Care Bin Packer Name Role Phone TERRANCE RIZO MD Primary Care Physician Encounter [facility] NBR [id number] Date(s): 05/22/23 - 05/22/23 [facility] Ambulatory Clinics [address] [place], [place] [address] Encounter Diagnosis Gynecologic exam normal(Discharge Diagnosis) - 05/22/23 Discharge Disposition: Home or Self Care Attending Physician: Matheus Allred MD Allergies, Adverse Reactions, Alerts Substance Reaction Severity Status omeprazole Moderate Active sodium sulfate Moderate Active Assessment and Plan Extracted from: Title:Clinic - Office Visit Note Author:Matheus Allred MD Date:05/22/23 1.??Gynecologic exam normal? ?Z01.419 Overall she is doing well. ??I encouraged her to make sure she is getting her vitamin D supplement daily. ??I also encouraged her to try to get some aerobic exercise??built into her routine.?? She does see??Dr. Rizo??soon and I encouraged her to??ask about lipid studies. Future Appointments Immunizations Given and Recorded Vaccine Date Status [...] Daily, # 30 tab, 12 Refill(s), Pharmacy: [facility] #[id number], 162.56, cm, 05/22/23 8:46:00 EST, Height, 72.8, kg, 05/22/23 8:53:00 EST, Weight Dosing Start Date: 05/22/23 Stop Date: 06/15/24 Status: Ordered Problem List Condition Confirmation Course [...] 1 Blood Pressure [90-140/60-90 mmHg] 124/6 8mmHg (05/22/23 8:46 AM) Mean Arterial Pressure, Cuff [70-110 mmH g] 87 mmHg (05/22/23 8:46 AM) Weight 72.8 kg (05/22/23 8:46 AM) Weight Measured (lbs) 160.496 lb (05/22/23 8:46 AM) Weight Dosing 72.800 kg (05/22/23 8:46 AM) [employer] Body Weight Calculated 54.7 kg (05/22/23 8:46 AM) Height 162.56 cm (05/22/23 8:46 AM) Height/Length Measured (inches) 64 inch (05/22/23 8:46 AM) BSA Measured 1.81 m2 (05/22/23 8:46 AM) Body Mass Index 27.55 kg/m2 (05/22/23 8:46 AM) Social History Social History Type Response Tobacco Never tobacco user T obacco Use:. 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 Gets pain behind left knee prior to period History of Present Illness No issues.?She and her family are doing well.?? 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 Her father??and stepmother recently moved to the area. ??Her father has myasthenia gravis??and is having some vision issues??and has early onset??dementia as well. ??He is still relatively functional and can do the shopping??but needs??lots of help.?? Her stepmother does not drive.?? Luckily, they live locally. ?? Gynecologic History Menses?? LMP 05/22/2023 ?Her cycles are regular and not bothersome. 3 days, min cramps. Breast ? History of bilateral mastalgia- Consult 02/[address] Calloway. Neg eval- rec'd cutting back on EtOH and adding in soy- not as bad recently Vulvovaginal Complaints ?Discharge - minimal Incontinence ?MIKAYLA - occasional ?OAB - none Sexually Active - Yes Prolapse symptoms?? -None STI History -?? Genital HSV Net Mender Surgery??- Tubal ligation Contraception? LS Bilat Salpingectomies 07/31/2020 ?? Obstetrical History ? , 3 NSVDs, largest 8# 5oz ?? Screening Cervical Cancer Screening ?Pap History?? 2019 - + non16/18 HR HPV. Completed Gardisil series??06/21/2019. Followed with Paps.??01/2021- Neg/Neg, 05/19/2022 neg/neg?Cervical treatments?- None Breast Cancer Screening??-? When clinically indicated Lipid screening?Through PCP Colonoscopy ?When clinically indicated Calcium Intake ?Dairy/Dairylike -?? minimal ?Supplements Vit D ?Supplemented most days. Vit D 1000 IU ?? Exercise?- Nothing regular Review of Systems Constitutional:?No??fevers,?No??chills,?No??sweats Eye:?No??recent visual problems ENT:?No??ear pain,?No??nasal congestion,?No??sore throat Respiratory:?No??shortness of breath,?No??cough Cardiovascular:?No??Chest pain,?No??palpitations,?No??syncope Gastrointestinal:?Nonausea,?No??vomiting,?No??diarrhea Genitourinary:?No??hematuria Nathan/Lymph:?No??bruising tendency,?No??swollen lymph glands Endocrine:?No??excessive thirst,??No??excessive hunger Musculoskeletal:??No??back pain,??No??neck pain,??No??joint pain,??No??muscle pain,??No??decreased range of motion Integumentary:?No??rash,?No??pruritus,?No??abrasions Neurologic: Alert & oriented X 4 Psychiatric:?No??anxiety,?No??depression Physical Exam Vitals & Measurements BP:??124/68?? HT:??162.56??cm?? WT:??72.8??kg?? BMI:??27.55?? BSA:??1.81?? General: Alert and oriented, well nourished,?No acute [...] intact Psychiatric: Cooperative, appropriate mood and affect Breasts: The breasts bilaterally are without??lymphadenopathy, skin dimpling??or nipple discharge. Clinic Assessment/Plan 1.??Gynecologic exam normal??Z01.419 Overall she is doing well. ??I encouraged her to make sure she is getting her vitamin D supplement daily. ??I also encouraged her to try to get some aerobic exercise??built into her routine.?? She does see??Dr. Rizo??soon and I encouraged her to??ask about lipid studies. Problem List/Past Medical History Ongoing Arthralgia Depression Dysphagia Esophageal reflux Fatigue Fibromyalgia Gynecologic exam normal History of cervical dysplasia HSV (herpes simplex virus) infection Nausea Historical Procedure/Surgical History ???Esophagogastroduodenoscopy, flexible, transoral; with biopsy, single or multiple (01/06/2022)???Salpingectomy (07/31/2020)???Dilation and curettage (08/14/2016)???EGD (esophagogastroduodenoscopy) gastric outlet reduction (01/04/2014)???Extraction of wisdom tooth Medications What How Much When Instructions Unchanged acetylcysteine (NAC 600 mg oral capsule) 1 Capsules Oral (given by mouth) Every day between meals Contact prescribing physician if questions or concerns ?? Unchanged famotidine (famotidine 20 mg oral tablet) 1 tab Oral (given by mouth) 2 times a day Contact prescribing physician if questions or concerns ?? Unchanged multivitamin (multivitamin adult, oral tablet) 1 tab Oral (given by mouth) Every day Contact prescribing physician if questions or concerns ?? Unchanged valACYclovir (valACYclovir 1 g oral tablet) 1 tab Oral (given by mouth) Every day Duration: 30 Days Contact prescribing physician if questions or concerns ?? Allergies omeprazole sodium sulfate Social History Alcohol Current, Beer, Daily Electronic Cigarette/Vaping Electronic Cigarette Use: Never. 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 Highest education level: Some college. Home/Environment Lives with Children, Spouse. Living situation: Home/Independent. Sexual Sexually active: Yes. Substance Use Current, Marijuana Tobacco Never tobacco user Tobacco Use:. Family History Breast cancer: Grandfather (M). Diabetes mellitus: Grandfather (M) and Grandfather (P). Immunizations Vaccine Date Status HPV, unspecified formulation 06/21/2019 Recorded human papillomavirus vaccine 02/22/2019 Recorded human papillomavirus vaccine 12/24/2018 Recorded Electronically Signed on 05/22/23 09:46 AM Matheus Allred MD Patient Care team information Care Team Personnel Name: TERRANCE RIZO MD Position: No Access Member Role: Primary Care Physician Address: Address: [address] [place] [address]- [place] Name: Matheus Allred MD Position: Physician - Women's Health Member Role: CHEMICAL WEIGHER Physician Address: Address: [address] [address]
--- OUTSIDE RECORDS SUMMARY | 2023-06-02 11:05 | XMS_ITS | Continuity of Care Document ---
Author Name Unknown Organization [facility] Ambulatory Clinics Address [address] [place] [address] Care Team Providers Care Posting Specialist Name Role Phone TERRANCE RIZO Primary Care Physician Encounter [facility] NBR [id number] Date(s): 01/18/22 - 01/18/22 [facility] Ambulatory Clinics [address] [place] [address]- Encounter Diagnosis Esophageal reflux(Discharge Diagnosis) - 01/18/22 Dysphagia(Discharge Diagnosis) - 01/18/22 Discharge Disposition: Home or Self Care Attending Physician: Raina Huddleston APRN Allergies, Adverse Reactions, Alerts Substance Reaction Severity Status omeprazole Moderate Active sodium sulfate Moderate Active Assessment and Plan Future Scheduled Tests Radiology* XR Barium Swallow 01/18/22 Functional Status 01/18/22 Other exposure to Infectious Disease Non e Medications famotidine 20 mg oral tablet 20 mg = 1 tab, Oral, BID, # 60 tab, 0 Refill(s) Start Date: 01/18/22 Status: Ordered multivitamin adult, oral tablet 1 tab, Oral, Daily, # 30 tab, 0 Refill(s) Start Date: 01/18/22 Status: Ordered NAC 600 mg oral capsule 600 mg = 1 cap, Oral, BID, between meals, # 60 cap, 0 Refill(s) Start Date: 01/18/22 Status: Ordered NuvaRing 0.120 mg-0.015 mg/24 hours vaginal ring 1 EA, VAG, every 4 wk, # 3 EA, 0 Refill(s) Start Date: 01/18/22 Status: Ordered Problem List Condition Confirmation Course Effective Dates Status Health St atus Informant Depression Confirmed Active Dysphagia Confirmed Active Fatigue Confirmed Active Fibromyalgia Confirmed Active Esophageal reflux Confirmed Active HSV (herpes simplex virus) infection Confirmed Active Arthralgia Confirmed Active Nausea Confirmed Active Procedures Procedure Date Related Diagnosis Body Site Status Esophagogastroduodenoscopy, flexible, transoral; with biopsy, single or multiple 01/05/22 Completed Vital Signs Most recent to oldest [Reference Range]: 1 Weight 70.31 kg (01/18/22 9:41 AM) Weight Measured (lbs) 155.007 lb (01/18/22 9:41 AM) Social History Social History Type Response Tobacco Never tobacco user T obacco Use:. Sex Patient Care team information Personnel Name: TERRANCE RIZO Address: Address: [address] [place] [id number] [place] [address]
[2023-06-02 16:03] LABS: HCT 44.4 % (36.0-46.0); HGB 15.3 g/dL (11.2-15.7); MCH 30.2 pg (27.0-33.0); MCHC 34.5 % (32.0-36.0); MCV 88 fL (80-95); MPV 11.4 fL (8.0-11.0); Platelet Count 232 10^3/uL (130-400); RBC 5.07 10^6/uL (3.93-5.22); RDW-SD 38.2 fL; WBC 6.17 10^3/uL (4.4-10.8)
[2023-06-02 17:02] LABS: Hemoglobin A1C 4.9 % (<5.7)
[2023-06-02 17:06] LABS: Calculated LDL 115 mg/dL (<100); Cholesterol 208 mg/dL (<200); Ferritin 85 ng/mL (8-252); HDL Cholesterol 79 mg/dL (40-60); Triglyceride 72 mg/dL (<150)
== END 2023-06-02 11:03 | disposition home or self-care (01) ==
LOC: NCHCN 11:02
PROVIDERS: PCP Family Medicine; Referring Provider Family Medicine; Visit Provider Family Medicine
DX: G25.81 Restless legs syndrome (principal); Z13.1 Encounter for screening for diabetes mellitus; D75.1 Secondary polycythemia; Z13.220 Encounter for screening for lipoid disorders
CPT/HCPCS: 80061; 85027; 82728; 83036

== ENCOUNTER → 2023-07-17 03:28 | Outpatient (CLI) | payer MEDICAID, SELFPAY ==
--- NOTE | 2023-07-17 | DI.RAD_ITS ---
Exam(s) RF MODIFIED SPEECH BA SWALLOW TECHNIQUE: Modified barium swallow was performed in conjunction with speech pathology. CONTRAST MATERIAL: Oral barium contrast was administered. COMPARISON: No exams were available for comparison FINDINGS: Note that this is not a dedicated esophagram, distal esophagus not evaluated. There is no evidence of aspiration or penetration of thick or thin liquids, barium pudding, or barium coated cookie. Speech pathology report to follow. . . . IMPRESSION: No evidence of aspiration or penetration. RADIATION DOSE DELIVERED: ene Munoz=3.1 mGy
[2023-07-17] MEDS: Barium Sulfate 81% w/w for Oral Suspension 148 GM BTL 90 GM PO (09:29)
[2023-07-17] MEDS: Barium Sulfate Oral Paste 40% W/V 230 ML TUBE 60 ML PO (09:29)
[2023-07-17] MEDS: Barium Sulfate 40% W/V 240 ML BTL 60 ML PO (09:30)
--- NOTE | 2023-07-17 14:47 | ST.MBS_ITS ---
Date of Service Date of service: 07/17/23 Time of Service: 09:00 Modified Barium Swallow Study Findings: Video fluoroscopic Swallowing Evaluation (VFSE) / Modified Barium Swallow Study (MBSS) Speech Language Pathology Report Patient referred for VFSE/MBSS from Idalmis Farfan given dysphagia complaints. HPI & Patient report of function: Patient is a 38 year old female with PMH significant for GERD and jaw pain/clenching who was referred for MBSS secondary to 18 month history of dysphagia. Sade was seen by alternate DYEHOUSE WORKER at [facility] for a non-instrumental swallow evaluation on 06/27/23 - see that report for more information. Primary complaint is that it is hard to produce a swallow. She states at onset of visit that since last meeting with DYEHOUSE WORKER, she is becoming more aware of how GERD may be a factor in these symptoms. IMPRESSIONS: MBSS findings reveal oral pharyngeal swallow function is within normal limits. There is no evidence of penetration, aspiration, or pharyngeal retention. Swallow safety and efficiency are preserved, and risk for aspiration pneumonia from prandial aspiration is considered low. See below for further breakdown of physiologic performance. Anticipate patient's dysphagia symptoms may be related to esophageal dysfunction/GERD with transferred sensation and/or muscle tension dysphagia (MTDg). This was explained to the patient at time of MBSS during review of films and she expressed understanding.Recommend 1 follow up visit with DYEHOUSE WORKER to further review findings, reinforce education re: GERD (Recommended follow up with GI doctor, consideration of blaster helper), as well as introduction to trial of muscle tension dysphagia massage exercises (may benefit from PT as well, especially with longstanding hx of jaw clenching/teeth grinding). Specialist referrals:?GI (Active currently), Consideration of PT if symptoms do not improve with DYEHOUSE WORKER provided MTDg exercises Ancillary tests: Defer to GI RECOMMENDATIONS: Diet Texture/IDDSI Level Recommendation:? SOLIDS 7-Regular Solids LIQUIDS? 0-Thin Liquids MEDICATIONS Whole with 0-Thin Liquids Do not alter medications (e.g., cut)? without advice from your MD or pharmacist. Risk Management Strategies:? Behavioral reflux precautions, including upright position during + 90 mins after meals. Small bites, approx [id number] Small sips, approx 10 mL Always have a drink with you during meals PLAN: Recommend follow up with outpatient DYEHOUSE WORKER to further review findings, reinforce education re: GERD diet and possible follow-ups (Recommended start with GI doctor, consideration of blaster helper), as well as introduction to trial of muscle tension dysphagia massage exercises (may benefit from PT as well, especially with longstanding hx of jaw clenching/teeth grinding). Anticipate 1-2 follow ups. OBJECTIVE Videofluoroscopic Swallow Evaluation (VFSE/MBSS) was conducted in the lateral and [id number] projection by Speech-Language Pathologist, in collaboration with Radiologist, to evaluate oropharyngeal swallow function. Anatomic view under fluoroscopy: WFL PO Barium Contrast Trials Oral barium water-soluble contrast was administered as follows: IDDSI Level 0 Varibar thin liquid (40% w/v) IDDSI Level 2 Varibar nectar thick/mildly thick liquid (40% w/v) IDDSI Level 4 Varibar pudding/pureed/extremely thick (40% w/v) IDDSI Level 7 Regular Solid: 1/2 allie cracker coated in 3 mL Varibar pudding MBSImP Component Scores: COMPONENT Scale SCORE 1 Lip closure (0-4) 0 Resulted in no labial escape 2 Hold Position (0-3) 0 Maintained a cohesive bolus between tongue to palatal seal 3 Bolus Preparation (0-4) 0 Resulted in timely and efficient chewing and mashing 4 Bolus Transport (0-4) 0 Was with brisk tongue motion 5 Oral Residue (0-4) 0 Was not observed. There was complete oral clearance 6 Swallow Initiation (0-4) 0 Occurred as bolus head at posterior angle of the mandibular ramus 7 Soft Palate Elevation (0-4) 0 Resulted in no bolus between soft palate and the pharyngeal wall 8 Laryngeal Elevation (0-3) 0 Demonstrated complete superior movement of thyroid cartilage with complete approximation of arytenoids to epiglottic petiole 9 Anterior Hyoid Motion (0-2) 0 Demonstrated complete anterior movement 10 Epiglottic Movement (0-2) 0 Resulted in complete inversion 11 Laryngeal Closure (0-2) 0 Was complete with no air or contrast in laryngeal vestibule 12 Pharyngeal Stripping Wave (0-2) 0 Was present and complete 13 Pharyngeal Contraction (0-3) 0 Was complete 14 PES Opening (0-3) 0 Was completely distended and complete duration with no obstruction of flow 15 Tongue Base Retraction (0-4) 0 Allowed no contrast between the tongue base and posterior pharyngeal wall 16 Pharyngeal Residue (0-4) 0 Was not present. There was complete pharyngeal clearance 17 Esophageal Clearance (0-4) 0 Was complete, with only a coating of contrast, if any Results: COMPONENT Scale SCORE 1 Oral Score (0-18) 0 2 Pharyngeal Score (0-29) 0 3 Esophageal Score (0-4) 0 Functional Oral Intake Scale: COMPONENT Scale SCORE 1 Pre-Study (1-7) 7 Total oral intake with no restrictions 2 Post-Study (1-7) 7 Total oral intake with no restrictions Penetration-Aspiration Scale: COMPONENT Scale SCORE 1 Thin liquid (1-8) 1 Contrast did not enter the airway 2 Joshua thick (1-8) 1 Contrast did not enter the airway 3 Honey thick (1-8) NA 4 Pudding thick (1-8) 1 Contrast did not enter the airway 5 Cookie (1-8) 1 Contrast did not enter the airway Usp Goals: Patient will tolerate least restrictive diet for adequate hydration and nutrition and good quality of life. - ONGOING Short Term Goals: Patient will participate in instrumental swallow evaluation (MBSS) in order to further characterize swallow function and inform treatment planning and recommendations for management strategies. -MET 07/17/23 Patient will verbalize/demonstrate understanding of education related to normal vs disordered swallow function, impact of reflux on swallow function, relationship between swallow and respiratory function, and other related factors affecting swallow function. -ONGOING Patient will return demonstration of tension reducing muscle tension dysphagia (MTDg) exercises, including jaw massage, circumlaryngeal massage, neck stretches in 2 weeks -NEW 07/17/23 Patient will verbalize comprehension of education provided re: results of MBSS, GERD/reflux, MTDg, and impact of lifestyle/diet on symptoms in 2 weeks - NEW 07/17/23 Thank you for allowing us to take part in this patient's care. Please feel free to contact the [facility] Speech Language Pathology Department with any questions/concerns.
== END ==
PROVIDERS: PCP Family Medicine; Visit Provider Family Medicine
DX: K21.9 Gastro-esophageal reflux disease without esophagitis (principal)
CPT/HCPCS: 92526; 74221

== ENCOUNTER 2025-01-20 15:45 | Outpatient (REF) | payer MEDICAID, SELFPAY ==
[2025-01-20 21:07] LABS: HCT 41.2 % (36.0-46.0); HGB 14.6 g/dL (11.2-15.7); MCH 31.1 pg (27.0-33.0); MCHC 35.4 % (32.0-36.0); MCV 88 fL (80-95); MPV 11.8 fL (8.0-11.0); Platelet Count 197 10^3/uL (130-400); RBC 4.69 10^6/uL (3.93-5.22); RDW 11.7 % (11.7-14.6); RDW-SD 35.9 fL; WBC 7.79 10^3/uL (4.4-10.8)
[2025-01-20 21:29] LABS: ALT 22 U/L (14-59); AST 15 U/L (15-37); Albumin 4.3 g/dL (3.4-5.0); Alkaline Phosphatase 64 U/L (46-116); Anion Gap 8.6 mmol/L (3-11); BUN 10 mg/dL (7-18); Bilirubin, Total 0.7 mg/dL (0.2-1.0); CO2 27.4 mmol/L (21.0-32.0); Calcium 9.6 mg/dL (8.5-10.1); Chloride 104 mmol/L (98-107); Estimated GFR 113.46 (mL/min/1.73m2); Glucose 110 mg/dL (74-106); Potassium 4.1 mmol/L (3.5-5.1); Sodium 140 mmol/L (136-145); TSH (W/Ref FT4) 2.33 uIU/mL (0.36-3.74); Total Protein 6.9 g/dL (6.4-8.2)
== END 2025-01-20 15:46 | disposition home or self-care (01) ==
LOC: NCHCN 15:45
PROVIDERS: PCP Family Medicine; Visit Provider Family Medicine
DX: R19.7 Diarrhea, unspecified (principal)
CPT/HCPCS: 80053; 85027; 84443